=== PATIENT | male | born 1945 | race Two or more races ===

== ENCOUNTER 2024-12-07 14:02 | Emergency (ER) | payer OTHER ==
[~2024-12-07] VITALS: Ht 175.3 cm; Wt 63.5 kg
[2024-12-07] MEDS ORDERED: EZETIMIBE10 MG (15:00)
[2024-12-07] MEDS ORDERED: ROSUVASTATIN CAL5 MG (15:01)
[2024-12-07] MEDS ORDERED: CETIRIZINE HCL 5MG/5ML BLIST.PACK PO ONE (16:30)
[2024-12-07] MEDS ORDERED: CETIRIZINE HCL 5 MG/5 ML ML PO ONE (16:30)
[2024-12-07] MEDS ORDERED: GUAIFENESIN/DEXTROMETHORPHAN 100MG/10ML BLIST.PACK PO ONE ×2 (16:30→16:31)
[2024-12-07 16:44] LABS: BASO % 0.3 % (0.1-1.2); EOS # 0.26 (0.04-0.54); EOS % 3.5 % (0.7-7.0); HEMATOCRIT 45.7 % (40.1-51.0); HEMOGLOBIN 15.5 g/dL (13.7-17.5); LYMPH # 1.46 (1.18-3.74); LYMPH % 19.9 % (19.3-53.1); MONO # 0.82 (0.24-0.82); MONO % 11.2 % (4.7-12.5); NEUT # 4.75 (1.56-6.13); NEUT % 64.8 % (34.0-71.1); PLATELET COUNT 201 K/uL (163-369); RED CELL DISTRIBUTION WIDTH 14.6 % (11.6-14.4)
[2024-12-07 17:00] LABS: POTASSIUM 4.2 mEq/L (3.5-5.1)
[2024-12-07 17:07] LABS: ALBUMIN 4.2 gm/dL (3.4-5.0); BILIRUBIN TOTAL 0.89 mg/dL (0.3-1.2); CALCIUM 9.7 mg/dL (8.5-10.1); CREATININE SERUM 0.9 mg/dL (0.70-1.30); GFR 81.19; GLOBULINA 3.7 G/DL (2.4-3.5); TOTAL PROTEIN 7.9 gm/dL (6.4-8.2)
[2024-12-07 17:36] LABS: ABG PH 7.404 (7.35-7.45); ABG PO2 85.3 mmHg (80-100); ABG pCO2 37.8 mmHg (35-45); BASE EXCESS -1.2 mmol/l; BICARBONATE 23.1 mmol/l (23-25); SaO2 96.4 %; Tco2 24.3 mmol/l
[2024-12-07 17:36] LABS: COVID-19 AG NEGATIVE (NEGATIVE)
[2024-12-07 17:50] LABS: INFLUENZA A AG NEGATIVE (NEGATIVE); INFLUENZA B AG NEGATIVE (NEGATIVE)
[2024-12-07 18:24] LABS: allen test SATISFACTORY; mode ROOM AIR; o2 21 %; puncture site RADIAL LEFT
== END 2024-12-07 21:51 ==
LOC: ER 14:53
PROVIDERS: General Practice
DX: R09.81 Nasal congestion (principal); R42 Dizziness and giddiness; R06.02 Shortness of breath; Z20.822 Contact with and (suspected) exposure to COVID-19

== ENCOUNTER 2025-02-08 12:21 | Emergency (ER) | payer OTHER ==
[~2025-02-08] VITALS: Ht 175.3 cm; Wt 57.6 kg
[~2025-02-08 12:21] MED LIST: EZETIMIBE10 MG; ROSUVASTATIN CAL5 MG
[2025-02-08] MEDS ORDERED: CLONIDINE HCL 0.1 MG TABLET PO ONE (13:37)
== END 2025-02-08 15:37 | disposition home or self-care (01) ==
LOC: ER 12:47
DX: I10 Essential (primary) hypertension (principal); R53.81 Other malaise

== ENCOUNTER 2025-02-16 17:01 | Emergency (ER) | payer OTHER ==
[~2025-02-16] VITALS: Ht 175.3 cm; Wt 56.7 kg
[2025-02-16] MEDS ORDERED: CANDESARTAN CILE8 MG PO (17:23)
[2025-02-16] MEDS ORDERED: ZETIA10 MG PO (17:23)
== END 2025-02-16 18:43 | disposition home or self-care (01) ==
LOC: ER 17:01
DX: R05.3 Chronic cough (principal); I10 Essential (primary) hypertension